=== PATIENT | male | born 1990 | race Caucasian/White ===

== ENCOUNTER 2018-03-04 13:45 | Emergency (ER) | payer SELFPAY ==
[~2018-03-04] VITALS: Ht 172.7 cm; Wt 83.9 kg
[2018-03-04 15:06] VITALS: BP 109/72
[2018-03-04] MEDS ORDERED: LIDOCAINE W/ EPINEPHRINE 1 % INJ 30ML ONE (15:36)
[2018-03-04] MEDS ORDERED: LIDOCAINE 1% (LOCAL ANESTH.) PF 5ml SDV ID ONE (15:45)
[2018-03-04] MEDS ORDERED: BACITRACIN TOP OINT 1 UD PKG TOP ONE (15:45)
== END 2018-03-04 16:12 | disposition home or self-care (01) ==
LOC: ER 14:06
DX: S61.215A Laceration without foreign body of left ring finger without damage to nail, initial encounter (principal); W54.0XXA Bitten by dog, initial encounter; Y93.89 Activity, other specified; Y99.8 Other external cause status; Y92.89 Other specified places as the place of occurrence of the external cause
CPT/HCPCS: 12001; 73140; 99283; J2001

== ENCOUNTER 2020-07-13 19:09 | Emergency (ER) | payer BC ==
[~2020-07-13] VITALS: Ht 172.7 cm; Wt 83.9 kg
[2020-07-13 19:13] VITALS: BP 117/69
== END 2020-07-13 20:08 | disposition left against medical advice (07) ==
LOC: ER 19:13
DX: M54.5 Low back pain (principal); G89.29 Other chronic pain; Z53.21 Procedure and treatment not carried out due to patient leaving prior to being seen by health care provider